=== PATIENT | male | born 1945 | race Caucasian/White ===

== ENCOUNTER → 2016-11-21 | Outpatient (CLI) | payer OTHER ==
[~2016-11-21] MED LIST: AMITRIPTYLINE H25 M2 PO; CENTRUM COMPLE1 EACH PO; CENTRUM SILVER1 EAC2 PO; COZAAR 25 MG TA25 M2 PO; CRESTOR20 MG PO; FISH OIL 1,2001 EAC3 PO; GABAPENTIN 100100 MG PO; GLIPIZIDE 10 MG10 MG PO; GLUCOPHAGE1000 MG PO; HYDROCHLOROTH12.5 MG PO; HYDROCODON-ACE1 EAC5 PO; JANUVIA100 MG PO; MELATONIN 5 MG1 EACH PO; METHOTREXATE 22.5 M1 PO; MOBIC15 MG PO; NAPROSYN500 MG PO; NEURONTIN 300300 M1 PO; NORCO 5-325 TA1 EACH PO; OMEPRAZOLE 20 M20 M1 PO; VITAMIN D-32000 UNIT PO; VITAMIN D1000 UNI1 PO; VITAMIN D1000 UNIT PO; VITAMINC500 PO
== END ==
LOC: MRI 07:27
DX: M48.06 Spinal stenosis, lumbar region (principal)

== ENCOUNTER → 2016-11-21 | Outpatient (CLI) | payer OTHER ==
[~2016-11-21] VITALS: Ht 170.2 cm; Wt 101.0 kg
--- NOTE | ~2016-11-21 | HPC ---
[facility] [place] [address] PAIN MANAGEMENT CONSULTATION Name: HARPAL KYLE Room #: REG PRAVEEN MDarius.#: [id number] Admission: 11/21/16 Attend Phys: Moy Blackwood DO Discharge: Date of : 45 Report #: [id number] THIS REPORT FOR: //name// CC: MIRA Lu Magaly DACOSTA DATE OF SERVICE: 11/21/2016 DATE OF SERVICE: 11/21/2016 CHIEF COMPLAINT: Low back pain, left lower extremity pain and paresthesias. HISTORY OF PRESENT ILLNESS: As you know, patient is a 71-year-old male, who returns today in followup visit with recurrent low back pain and now left lower extremity pain with paresthesias. We originally saw the patient with low back pain and right lower extremity pain with paresthesias. He was diagnosed with lumbar radiculopathy and was sent to our clinic by Dr. Devon Lino to trial epidural injections under fluoroscopic guidance. He has done very well with these epidural injections and has been lost to follow up since 08/26/2014. He returns today stating no new injury, no new trauma, but continuing to progress low back pain, left lower extremity pain. He states pain is chronic in nature, sharp, aching, numbness and tingling in sensation, exacerbated with lying down, improves with nothing to date. He has been referred back to our clinic to trial a lumbar epidural injection under fluoroscopic guidance to determine if his symptoms might be amenable to this type of procedure. ALLERGIES: PENICILLIN, OXYCODONE, MEPERIDINE. CURRENT MEDICATIONS: Metformin, omeprazole, glipizide, methotrexate, ____, losartan, hydrochlorothiazide, gabapentin, vitamin C, vitamin D, melatonin, multivitamin. SOCIAL HISTORY: The patient denies tobacco, alcohol, IV or illicit drug use. He is unaccompanied today. IMAGING: No new imaging available. PHYSICAL EXAMINATION: VITAL SIGNS: Blood pressure 172/97, pulse is 84, respiratory rate 20, unlabored. The patient 98% on room air, height 5 feet 7 inches tall, weight 222.6 pounds, BMI calculated 34.9. GENERAL: Well developed, well nourished, well hydrated 71-year-old male appearing stated age, placing current pain score at 8/10. [place] [address] PAIN MANAGEMENT CONSULTATION Name: HARPAL KYLE Room #: REG CLHemant Delmi#: [id number] Admission: 11/21/16 Attend Phys: Moy Blackwood DO Discharge: Date of : 45 Report #: [id number] HEENT: Normocephalic, atraumatic. Pupils equal, round, reactive to light. EXTREMITIES: Show no clubbing, no cyanosis, no edema. MUSCULOSKELETAL: Seated straight leg raising negative. Supine straight leg raising positive. Fabere's test negative. Modified Gaenslen's positive for axial low back pain. Gait is antalgic favoring left lower extremity over right. ASSESSMENT: 1. Lumbar radiculopathy. 2. Displacement of lumbar intervertebral disk with radiculopathy. 3. Lumbosacral spondylosis with radiculopathy. 4. Spinal stenosis of lumbar spine. 5. Degeneration of lumbar spine. 6. Chronic intractable pain. PLAN: 1. The patient has returned today in followup visit indicating no new injury, no new trauma, but recurrent low back pain and left lower extremity pain. He has begun to workup with Dr. Diego Vee, apparently underwent an MRI just before coming to our clinic, but this is not available for us to see yet. His symptoms do correlate with lumbar radiculopathy, likely source is a spinal stenosis given the bilateral nature of his pain over the past couple of years. We would recommend the patient to undergo epidural injection under fluoroscopic guidance to determine if his symptoms would be improved. The patient was advised of the risks and the benefits of this procedure. These risks include but are not necessarily limited to bleeding, bruising, infection, worsening pain, no relief of pain, also risk of temporary or permanent muscle weakness, temporary or permanent nerve damage, possible paralysis and . The patient states understood and wished to proceed. 2. No medication changes were made at today's visit. The patient will continue current medical therapy as previously prescribed. 3. The patient to return to our clinic on an as needed basis for possible repeat epidural injection. PROCEDURE NOTE DESCRIPTION OF PROCEDURE: Lumbar epidural steroid injection under fluoroscopic guidance. After obtaining written consent, the patient was taken back to fluoroscopy suite, placed in prone position with pillow under abdomen to decrease lumbar lordosis. Skin overlying lumbosacral area prepped and draped in aseptic fashion. The lumbar intervertebral spaces were identified by AP fluoroscopy. Skin and subcutaneous tissue overlying the target site of injection was anesthetized with 3 mL of 1% lidocaine. A #20-gauge 3-1/2 inch Tuohy needle advanced under fluoroscopic guidance towards [address] [address] PAIN MANAGEMENT CONSULTATION Name: HARPAL KYLE Room #: REG PRAVEEN Dickens#: [id number] Admission: 11/21/16 Attend Phys: Moy Blackwood DO Discharge: Date of : 45 Report #: [id number] the epidural space using a left paramedian approach. Epidural space identified using loss of resistance to air technique. After negative aspiration for heme or cerebrospinal fluid, 1 mL of Omnipaque was injected. Lumbar epidurogram was confirmed using both AP and lateral fluoroscopy. After negative aspiration for heme or cerebrospinal fluid, 5 mL of a solution containing 2 mL 40 mg per mL, 80 mg total triamcinolone, 3 mL lidocaine 1% injected slowly. Needle retracted detention, needle tract flushed 3 mL 1% lidocaine. Needle then removed. Sterile bandage placed over injection site. No new motor deficits present in the lower extremity following the procedure. The patient tolerated procedure well, carefully escorted to the recovery in stable condition. No apparent complications. After meeting discharge criteria, the patient discharged home. By: 0814 [id number] Moy Blackwood DO /nt
[2016-11-21 09:47] VITALS: BP 172/97
== END | disposition home or self-care (01) ==
LOC: PAIN 07:04
DX: M51.16 Intervertebral disc disorders with radiculopathy, lumbar region (principal); M47.27 Other spondylosis with radiculopathy, lumbosacral region; M48.06 Spinal stenosis, lumbar region; G89.29 Other chronic pain

== ENCOUNTER → 2016-12-06 | Outpatient (CLI) | payer OTHER ==
[~2016-12-06] VITALS: Ht 170.2 cm; Wt 98.9 kg
[~2016-12-06] MED LIST changes: +IBUPROFEN 800800 M1 PO; +NEURONTIN300 MG PO
--- NOTE | ~2016-12-06 | HPC ---
[facility] [place] [address] PAIN MANAGEMENT CONSULTATION Name: HARPAL KYLE Room #: REG PRAVEEN MDarius.#: [id number] Admission: 12/06/16 Attend Phys: Moy Blackwood DO Discharge: Date of : 45 Report #: [id number] THIS REPORT FOR: //name// CC: MIRA Lu REFERRING PHYSICIAN: Mira Lino MD CHIEF COMPLAINT: Low back pain, lower extremity pain and paresthesias. HISTORY OF PRESENT ILLNESS: As you know, the patient is a 71-year-old male who recently underwent an epidural injection under fluoroscopic guidance to address lumbar radicular symptoms. This injection was provided 11/21/2016. He returns today in followup visit indicating that his pain is level of 5/10. He received only transient improvement in symptoms, no greater than about 20%. He does have appointments with Dr. Devon Lino for surgical evaluation. As you are aware, the image exam of 11/21/2016, shows significant arthritic changes and significant spinal stenosis at multiple levels. There is [id number] to severe central canal stenosis at L1-L2, L2-L3 and a severe type central canal stenosis at L3-L4. Unfortunately, the patient did not receive much in the way of improvement in symptoms with the epidural injection. He returns today to discuss options for treatment. Today, the patient is placing pain score 5/10, states that lying down or any activity exacerbates symptoms, sleep and medications appear to improve pain. ALLERGIES: PENICILLIN, OXYCODONE, MEPERIDINE. CURRENT MEDICATIONS: Ibuprofen 800 mg twice a day, melatonin 5 mg per day, cholecalciferol 1000 units per day, gabapentin 300 mg twice a day, multivitamin 1 tab per day, glipizide 10 mg twice a day, ascorbic acid 500 mg twice a day, methotrexate 2.5 mg once a day, metformin 1000 mg twice a day, losartan 25 mg once a day, omeprazole 20 mg per day, rosuvastatin 20 mg per day, hydrochlorothiazide 12.5 mg once a day. SOCIAL HISTORY: The patient denies tobacco, alcohol, IV or illicit drug use. He is unaccompanied today. IMAGING: MRI of the lumbar spine obtained on 11/21/2016, shows multilevel lumbar spondylosis, severe central canal stenosis at L1-L2 and L2-L3 and severe type central canal stenosis L3-L4. PHYSICAL EXAMINATION: VITAL SIGNS: Blood pressure 155/91, pulse 84, respiratory rate 16, unlabored. The patient is 98% on room air, height 5 feet 7 inches tall, weight 218 pounds, BMI calculated 34.1. GENERAL: Well developed, well nourished, well hydrated 71-[place] [address] PAIN MANAGEMENT CONSULTATION Name: SAROJHARPALBRETT PATEL Room #: REG Hemant Dickens#: [id number] Admission: 12/06/16 Attend Phys: Moy Blackwood DO Discharge: Date of : 45 Report #: [id number] appearing his stated age, placing current pain score at 5/10. HEENT: Normocephalic, atraumatic. Pupils equal, round, reactive to light. Extraocular muscles are intact. Sclerae nonicteric without injection. NEUROLOGIC: Cranial nerves 2-12 grossly intact. Speech is fluent. EXTREMITIES: Show no clubbing, no cyanosis, no edema. MUSCULOSKELETAL: Seated straight leg raising negative. Supine straight leg raising positive. Fabere's test is negative. Modified Gaenslen's positive for axial low back pain. Ankle clonus negative. Babinski is negative. Lumbar provocation testing including extension, rotation, lateral flexion all intensify axial back pain. ASSESSMENT: 1. Symptomatic lumbar radiculopathy. 2. Severe and progressively worsening spinal stenosis of lumbar spine. 3. Lumbosacral spondylosis with radiculopathy. 4. Displacement of a lumbar intervertebral disk with radiculopathy. 5. Lumbar facet arthropathy. 6. Lumbar degeneration. 7. Chronic intractable pain. PLAN: 1. The patient has returned today in followup visit, unfortunately not noticing much in the way of improvement with the previous epidural injection. The patient indicates he received no greater than 20% improvement and this did only lasted for a couple of days. The patient and I did discuss options for treatment. These would include physical therapy, stretching exercises, core strengthening. We discussed medication management with addition of a neuropathic pain medication and possible low dose opioid for pain control. We discussed epidural injections, spinal cord stimulator therapy and surgical options. Given the fact the patient received not much in the way of improvement in symptoms and only transiently I would recommend that we delay the next in a series until which time the patient has a chance to discuss his case with neurosurgery, which apparently is on the 17 of this month. 2. The patient will start on increasing his gabapentin. We will increase his dose to 1 tab in the morning 300 mg and 900 mg at night for 3 nights, then increase to 600 mg morning and 900 mg at night in hopes of improving neuropathic pain. At the end of 6 days, he should then increase to 900 mg b.i.d. He was given a prescription of #180, 300 mg gabapentin tablets to reach this increase in medication. The patient was advised anytime during the titration of his medication he notes improvement in symptoms, stabilize at that dose, no improvement in symptoms, no side effects continue the titration as directed. 3. We will see the patient back in followup visit on an as needed basis. He is to keep his appointment with Dr. Devon Lino and he was advised to make sure he takes with him the CT from the [facility] MRI dated [facility] [address] [place] [address] PAIN MANAGEMENT CONSULTATION Name: HARPAL KYLE Room #: REG CLHemant Dickens#: [id number] Admission: 12/06/16 Attend Phys: Moy Blackwood DO Discharge: Date of : 45 Report #: [id number] 11/21/2016, for evaluation. We will be available to see the patient back in followup visit if requested to provide any interventional treatments. By: [id number] Moy Blackwood DO /nt
[2016-12-06 08:27] VITALS: BP 155/91
== END ==
LOC: PAIN 06:46
DX: M47.27 Other spondylosis with radiculopathy, lumbosacral region (principal); G89.29 Other chronic pain; I10 Essential (primary) hypertension; M51.16 Intervertebral disc disorders with radiculopathy, lumbar region

== ENCOUNTER → 2016-12-26 | Outpatient (CLI) | payer OTHER ==
[~2016-12-26] VITALS: Ht 170.2 cm; Wt 100.7 kg
--- NOTE | ~2016-12-26 | HPC ---
[facility] [place] [address] [place] [address] PAIN MANAGEMENT CONSULTATION Name: HARPAL KYLE Room #: REG PRAVEEN MMartirDelmi.#: [id number] Admission: 12/26/16 Attend Phys: Moy Blackwood DO Discharge: Date of : 45 Report #: [id number] THIS REPORT FOR: //name// CC: MIRA Valentine DATE OF SERVICE: 12/26/2016 CHIEF COMPLAINT: Low back pain, lower extremity pain and paresthesias. HISTORY OF PRESENT ILLNESS: As you know, the patient is a 71-year-old male who unfortunately has begun to fail epidural injection therapy. We have now changed to medication management as the epidural injections have become ineffective for treatment. I believe he has had a progression of his lumbar pathology and this is leading to lack of efficacy with epidural injections. Today, the patient returns having recently started on medications, reporting pain score 4-5/10; states pain is sharp, aching, burning, itchy in sensation; exacerbated with lying down, worse in the evening, especially when arising in bed; meds and cold compresses tend to improve pain. He does have appointments to see Neurosurgery, but at this time he is returning for changes in medication therapy to address residual symptoms. ALLERGIES: PENICILLIN, OXYCODONE, MEPERIDINE. CURRENT MEDICATIONS: Hydrochlorothiazide 12.5 mg once a day, omeprazole 20 mg per day, losartan 25 mg once a day, metformin 1000 mg twice a day, methotrexate 10mg once a week, ascorbic acid 500 mg per day, glipizide 10 mg twice a day, multivitamin 1 tab per day, gabapentin 600 mg twice a day, cholecalciferol 1000 units per day, ibuprofen 800 mg twice a day. SOCIAL HISTORY: The patient denies tobacco, alcohol, IV or illicit drug use. He is retired. He is unaccompanied today. IMAGING: No new imaging available. PHYSICAL EXAMINATION: VITAL SIGNS: Blood pressure 137/88, pulse 88, respiratory rate 16 unlabored, the patient is 96% on room air. Height 5 feet 7 inches tall, weight 222 pounds, BMI calculated 34.8. GENERAL: Well-developed, well-nourished, well-hydrated exogenously obese 71-year-old male appearing stated age, placing current pain score of 4-5/10. HEENT: Normocephalic, atraumatic. Pupils equal, round, reactive to light. Extraocular muscles are intact. Sclerae nonicteric, without injection. EXTREMITIES: Show no clubbing, no cyanosis, no edema. [address] [address] PAIN MANAGEMENT CONSULTATION Name: HARPAL KYLE Room #: REG [facility].#: [id number] Admission: 12/26/16 Attend Phys: Moy Blackwood DO Discharge: Date of : 45 Report #: [id number] MUSCULOSKELETAL: Lower extremity strength is equal and symmetrical again today 12/01, muscle bulk and tone equal and symmetrical. Seated straight leg raising negative. Supine straight leg raising positive. Gait is antalgic. ASSESSMENT: 1. Symptomatic lumbar radiculopathy. 2. Severe and progressively worsening spinal stenosis of lumbar spine. 3. Displacement of lumbar intervertebral disk with radiculopathy. 4. Lumbosacral spondylosis with radiculopathy. 5. Facet arthropathy of the lower lumbar spine. 6. Degeneration of the lumbar spine. 7. Chronic intractable pain. PLAN: 1. The patient returns today in followup visit where we have discussed other treatment options for his ongoing pain issues. He is concerned about surgery as he is believing this may be an extensive surgery that will take time to recover. He was requesting other options. In the past, we had discussed with the patient the various treatment options for lumbar radicular pain secondary to spinal stenosis. We did discuss with the patient today the possibility of making changes in medication therapy and spinal cord stimulator therapy. The patient is interested in both treatment options. He wishes to discuss both today. We spent 30 minutes of time discussing the spinal cord stimulator itself. We have given the patient information both in written and digital form about the spinal cord stimulator to review on his own, to discuss at followup visits. We will make changes in medication therapy today. 2. The patient will increase Neurontin dose to 900 mg b.i.d., I have given the patient enough medication to reach this increase over 7 days, then increase to 1200 mg twice a day, I have given the patient number 240 tablets to be able to reach 4 tablets in the morning and 4 tabs at night of 300 mg dose. He was advised anytime during the titration if he notes improvement in symptoms, stabilize at that dose, otherwise continue the titration as directed. He was given this prescription with two refills. 3. We will start the patient on ibuprofen 800 mg dose 1 tab p.o. t.i.d., I have given the patient number 90 tablets, 2 refills. The patient will take this medication for anti-inflammatory activity. 4. The patient was given information about spinal cord stimulator. I have also provided them with the names of psychiatrist who test for psychiatric appropriateness to undergo the device implantation. The patient will consider his options. If he does wish to move forward with this trial, he needs to make an appointment with Psychiatry, be evaluated to determine if he is a potential candidate. At that time, we will review the psychiatric evaluation if he does appear to be appropriate and is willing to move forward with the trial. We would then schedule him back with our clinic to undergo this trial implantation. If it is successful, then he can move towards permanent implantation. I have advised the patient that he must make the appointment on his own with [address] [address] PAIN MANAGEMENT CONSULTATION Name: HARPAL KYLE Room #: REG PRAVEEN Dickens#: [id number] Admission: 12/26/16 Attend Phys: Moy Blackwood DO Discharge: Date of : 45 Report #: [id number] Psychiatry. Once he has completed this, he is to contact our clinic so that we can review results and determine if he is an appropriate candidate from a psychological standpoint to undergo this procedure. 5. The patient is to keep his appointment with his neurosurgeon who referred the patient to our clinic to discuss surgical options. I did describe to the patient today that the spinal cord stimulator even if it is successful will not change his spinal stenosis, the progression of this disease process will continue. We would need to address symptoms sooner or later given the progressive nature of spinal stenosis. He will discuss this with Neurosurgery. <ELECTRONICALLY SIGNED> By: Moy Blackwood DO 12/28/16 [id number] Moy Blackwood, /nt
[2016-12-26 11:18] VITALS: BP 137/88
== END ==
LOC: PAIN 07:05
DX: M51.16 Intervertebral disc disorders with radiculopathy, lumbar region (principal); M48.06 Spinal stenosis, lumbar region; M47.26 Other spondylosis with radiculopathy, lumbar region; G89.29 Other chronic pain

== ENCOUNTER → 2017-04-19 | Outpatient (CLI) | payer OTHER | LOC: ULTRA 15:39 | DX: N50.812 Left testicular pain (principal) ==

== ENCOUNTER → 2018-05-08 | Outpatient (CLI) | payer OTHER ==
[2018-05-08 07:55] LABS: CREATININE 1.4 mg/dL (0.7-1.3)
== END ==
LOC: CAT 07:10
PROVIDERS: Neuromusculoskeletal Medicine & OMM
DX: K57.30 Diverticulosis of large intestine without perforation or abscess without bleeding (principal); K57.32 Diverticulitis of large intestine without perforation or abscess without bleeding; K76.0 Fatty (change of) liver, not elsewhere classified; E11.9 Type 2 diabetes mellitus without complications; I10 Essential (primary) hypertension; E78.5 Hyperlipidemia, unspecified; M06.9 Rheumatoid arthritis, unspecified; G47.30 Sleep apnea, unspecified

== ENCOUNTER → 2019-11-04 | Outpatient (CLI) | payer OTHER ==
[2019-11-04 12:12] LABS: CREATININE 1.4 mg/dL (0.7-1.3)
== END ==
LOC: CAT 11:13
PROVIDERS: Nurse Practitioner
DX: R10.2 Pelvic and perineal pain (principal); R11.2 Nausea with vomiting, unspecified; M47.816 Spondylosis without myelopathy or radiculopathy, lumbar region